=== PATIENT | male | born 1975 | race Caucasian/White ===

== ENCOUNTER → 2020-02-22 09:16 | Outpatient (CLI) | payer OTHER, SELFPAY ==
--- NOTE | ~2020-02-22 | US_ITS ---
EXAMINATION: US abdomen complete DATE: 02/22/2020 10:20 INDICATION: Right lower quadrant abdominal pain TECHNIQUE: Multiple grayscale and Doppler ultrasound images of the abdomen were obtained. COMPARISON: None FINDINGS: The pancreatic head and body are normal in appearance. The pancreatic tail is not visualized. Normal caliber abdominal aorta measuring 2.4 cm in diameter proximally, 2.7 cm the mid aorta and 2.5 cm the distal aorta. Liver has normal echogenicity and contour, with a smooth surface. No liver lesion iden tified. No intrahepatic biliary duct dilation suspected. Portal venous flow was seen in the hepatopet al, normal direction and has normal Doppler waveform. There is a region of shadowing centered at the gallbladder fossa with no definitive gallbladder. Differential would include surgical clips, mural ca lcification of the decompressed gallbladder, gallstone or heterotopic ossification. The common bile d uct measures 6 mm diameter which is normal. Sonographic Hawkins sign was reported as negative by the s onographer. The visualized proximal inferior vena cava is normal. There is normal renal contour and e chogenicity bilaterally. The right kidney measures 10.9 x 4.5 x 6.7 cm and the left 12.0 x 7.3 x 7.1 cm. There are no focal renal lesions identified. There is no hydronephrosis. Spleen is normal measu ring 12.9 cm maximal length. Bladder is normal. Scattered shadowing bowel gas with no abnormal mass o r fluid collections identified in the right lower quadrant region of pain. IMPRESSION: 1. Small region of shadowing at the gallbladder fossa without definitive gallbladder. Per patient pro vided history patient has had prior partially removed gangrenous gallbladder suggesting this repres ents other surgical clips, secondary heterotopic ossification or calcified gallstone. Correlate with surgical history and any prior imaging. If clinically indicated CT could be obtained for further eval uation. Otherwise unremarkable abdominal ultrasound. Reviewed, dictated and finalized at location B. IMPRESSION: 1. Small region of shadowing at the gallbladder fossa without definitive gallbl adder. Per patient provided history patient has had prior partially removed g angrenous gallbladder suggesting this represents other surgical clips, secondar y heterotopic ossification or calcified gallstone. Correlate with surgical hist ory and any prior imaging. If clinically indicated CT could be obtained for fur ther evaluation. Otherwise unremarkable abdominal ultrasound.
== END ==
PROVIDERS: PCP Family Medicine; Visit Provider Family Medicine
DX: R10.31 Right lower quadrant pain (principal)
CPT/HCPCS: 76700